=== PATIENT | male | born 1970 | race Caucasian/White ===

== ENCOUNTER 2021-06-02 20:41 | Observation (INO) ==
[2021-06-02 21:18] LABS: Basophils # 0.1 K/mcL (0.0-0.2); Eosinophils # 0.3 K/mcL (0.0-0.6); Eosinophils % 2.6 %; Hematocrit 39.7 % (37.5-50.1); Hemoglobin 13.4 g/dL (12.9-16.9); Immature Granulocytes % 0.2 % (0-4); Lymphocytes # 2.7 K/mcL (0.6-4.6); Mean Corpuscular HGB Conc 33.8 g/dL (31.6-35.5); Mean Corpuscular Hemoglobin 30.1 pg (28.0-33.3); Mean Corpuscular Volume 89.2 fL (83.0-100.0); Mean Platelet Volume 9.3 fL (9.4-12.4); Monocytes # 0.6 K/mcL (0.0-1.3); Monocytes % 6.4 %; Neutrophils # 5.7 K/mcL (1.6-8.9); Platelet Count 346 K/mcL (140-400); Red Blood Count 4.45 M/mcL (4.19-5.50); Segmented Neutrophils % 60.8 %; White Blood Count 9.4 K/mcL (4.3-11.1)
[2021-06-02 21:27] LABS: Bilirubin,Urine Negative (Negative); Blood,Urine Negative (Negative); Clarity,Urine Clear (Clear); Color,Urine Light-Yellow (Yellow); Glucose,Urine (UA) Normal (Normal); Ketones,Urine Negative (Negative); Leukocyte Esterase,Urine Negative (Negative); Nitrite,Urine Negative (Negative); PH,Urine 6.5 pH Units (5.0-8.0); Protein,Urine Trace mg/dL (Neg-Trace); Specific Gravity,Urine 1.024 (1.010-1.025); Urobilinogen,Urine Normal (Normal)
[2021-06-02 21:40] LABS: Amphetamine Screen,Urine Positive ng/mL (Cutoff=1000); Barbiturate Screen,Urine Negative ng/mL (Cutoff=200); Benzodiazepines Screen,Urine Negative ng/mL (Cutoff=200); Cannabinoid Screen,Urine Positive ng/mL (Cutoff = 50); Cocaine Screen,Urine Negative ng/mL (Cutoff= 300); Opiate Screen,Urine Negative ng/mL (Cutoff=300); Phencyclidine Screen,Urine Negative ng/mL (Cutoff=25)
[2021-06-02 21:46] LABS: Acetaminophen < 10 mcg/mL (10-20); BUN/Creatinine Ratio 13 (6-26); Blood Urea Nitrogen 11 mg/dL (6-20); Calcium 9.2 mg/dL (8.6-10.3); Carbon Dioxide 28 mEq/L (23-29); Chloride 101 mEq/L (98-107); Chol/HDL Ratio 3.6 (0-4.9); Cholesterol 167 mg/dL (< 200); Creatine Kinase 66 Units/L (30-223); Ethanol < 10 mg/dL (Less than 10); Glucose 101 mg/dL (70-105); HDL Cholesterol 46 mg/dL (40-59); LDL Cholesterol,Calculated 95 mg/dL (< 100); Lipase 233 Units/L (11-82); Osmolality,Calculated 282 (280-300); Potassium 3.7 mEq/L (3.5-5.1); Salicylate < 2.5 mg/dL (15.0-30.0); Sodium 136 mEq/L (136-145); Triglycerides 132 mg/dL (< 150); Troponin I < 0.03 ng/mL (< 0.04); eGFR For African Americans > 60 (> 60); eGFR For Non-African Americans > 60 (> 60)
[2021-06-02] MEDS ORDERED: Isovue-370 500 ML BOTTLE IVP ONE (21:56)
[2021-06-02] MEDS ORDERED: Ketorolac 30 MG/ML VIAL IVP STA (23:13)
[2021-06-02] MEDS ORDERED: 0.9 % Sodium Chloride 1,000 ML IVC ONE (23:13)
[2021-06-02] MEDS ORDERED: Ondansetron 4 MG/2 ML VIAL IVP ONE (23:14)
[2021-06-02] MEDS ORDERED: cefTRIAXone 1,000 MG in 0.9 % Sodium Chloride 10 ML IVP ONE (23:26)
[2021-06-02 23:51] LABS: Estimated Average Glucose 120 mg/dl; Hemoglobin A1C 5.8 %
[2021-06-02] MEDS ORDERED: Naloxone 0.4 MG/ML INJ IVP PRN (23:58)
[2021-06-02] MEDS ORDERED: Ondansetron ODT 4 MG TAB.RAPDIS SL PRN (23:58)
[2021-06-03] MEDS ORDERED: Perflutren Lipid Microsphere 1.3 ML in 0.9 % Sodium Chloride 8.7 ML IVP PRN (00:03)
[2021-06-03] MEDS ORDERED: Nitroglycerin 0.4 MG TAB.SUBL SL PRN (00:08)
[2021-06-03 04:06] LABS: Hematocrit 37.7 % (37.5-50.1); Hemoglobin 12.8 g/dL (12.9-16.9); Mean Corpuscular Hemoglobin 29.9 pg (28.0-33.3); Mean Corpuscular Volume 88.1 fL (83.0-100.0); Mean Platelet Volume 9.3 fL (9.4-12.4); Platelet Count 325 K/mcL (140-400); Red Blood Count 4.28 M/mcL (4.19-5.50); Red Cell Distribution Width 12.1 % (11.5-14.5); White Blood Count 8.7 K/mcL (4.3-11.1)
[2021-06-03 04:25] LABS: BUN/Creatinine Ratio 13 (6-26); Blood Urea Nitrogen 10 mg/dL (6-20); Calcium 8.7 mg/dL (8.6-10.3); Carbon Dioxide 28 mEq/L (23-29); Chloride 102 mEq/L (98-107); Chol/HDL Ratio 3.6 (0-4.9); Cholesterol 151 mg/dL (< 200); Glucose 105 mg/dL (70-105); HDL Cholesterol 42 mg/dL (40-59); LDL Cholesterol,Calculated 92 mg/dL (< 100); Magnesium 1.8 mg/dL (1.6-2.6); Osmolality,Calculated 279 (280-300); Phosphorous 3.7 mg/dL (2.7-4.5); Potassium 3.8 mEq/L (3.5-5.1); Sodium 135 mEq/L (136-145); Triglycerides 86 mg/dL (< 150); eGFR For African Americans > 60 (> 60); eGFR For Non-African Americans > 60 (> 60)
[2021-06-03] MEDS: Ringers Solution, Lactated 1,000 ML IVC SCH ×2 (05:50→19:25)
[2021-06-03] MEDS: 0.9 % Sodium Chloride 1,000 ML IVC SCH ×2 (10:56→21:40)
[2021-06-03] MEDS: Aspirin 81 MG TAB.CHEW PO SCH (10:57)
[2021-06-03] MEDS ORDERED: Acetaminophen 325 MG TABLET PO PRN (13:19)
[2021-06-03] MEDS: Nicotine 21 MG PATCH.TD24 TD SCH (14:10)
[2021-06-03] MEDS: *HR* Heparin 5,000 UNIT/ML VIAL SQ SCH (18:39)
[2021-06-04 06:05] LABS: Chol/HDL Ratio 3.7 (0-4.9)
[2021-06-04] MEDS: *HR* Heparin 5,000 UNIT/ML VIAL SQ SCH (06:12)
[2021-06-04] MEDS: Nicotine 21 MG PATCH.TD24 TD SCH (07:33)
[2021-06-04] MEDS: Aspirin 81 MG TAB.CHEW PO SCH (07:33)
[2021-06-04] MEDS ORDERED: hydrOXYzine pamoate 25 MG CAPSULE PO PRN (08:43)
[2021-06-04] MEDS ORDERED: Cyanocobalamin (B-12) 1,000 MCG TABLET PO SCH (09:00)
[2021-06-04] MEDS ORDERED: Famotidine 20 MG TABLET PO SCH (09:00)
[2021-06-04] MEDS: 0.9 % Sodium Chloride 1,000 ML IVC SCH (10:44)
[2021-06-04 11:35] VITALS: BP 177/87; PULSE 81; TEMP 98.4; O2SAT 97
[2021-06-04 13:42] LABS: Influenza A PCR Negative (Negative); Influenza B PCR Negative (Negative); Resp. Syncytial Virus PCR Negative (Negative)
[2021-06-04 13:45] LABS: SARS-CoV-2 by PCR (In House) Negative (Negative)
== END 2021-06-04 14:56 ==
LOC: 3BNU 20:41 → EMEROOARM 20:41 → SUATTDRO 06-03 00:05 → 3BNU 06-03 00:57
PROVIDERS: ADMIT Student in an Organized Health Care Education/Training Program; ATTEND Internal Medicine